=== PATIENT | female | born 1990 ===

== ENCOUNTER 2020-08-02 12:57 | Emergency (ER) | payer MEDICAID ==
[~2020-08-02] VITALS: Ht 180.3 cm; Wt 119.8 kg
[2020-08-02] MEDS ORDERED: AZITHROMYCIN 250 MG TABLET. PO ONE (13:45)
[2020-08-02] MEDS ORDERED: cefTRIAXone IM 250 MG VIAL IM ONE (13:45)
[2020-08-02 13:59] LABS: BILIRUBIN,URINE NEGATIVE (NEG); CLARITY,URINE CLEAR; COLOR,URINE YELLOW; NITRITE,URINE NEGATIVE (NEG); PH,URINE 5.5 (<5.0-8.0); PROTEIN,URINE NEGATIVE (NEG-TRACE); UROBILINOGEN,URINE 0.2 mg/dL (0.2 mg/dL)
[2020-08-02 14:15] LABS: BACTERIA,URINE FEW /HPF (0-FEW); RBC,URINE 0 /HPF (0-2); WBC,URINE 0 /HPF (0-4)
[2020-08-02 14:45] VITALS: BP 147/82
[2020-08-02] MEDS ORDERED: POLY10DR LEFTEYE (14:56)
--- NOTE | 2020-08-02 14:56 | ED.ADGEN ---
Past Medical History Past Medical History: No Pertinent History Past Surgical History: No Surgical History Smoking Status: Current Every Day Smoker Alcohol Use: Occasionally General Adult EDM: Chief Complaint: VAGINAL PROBLEM HPI: HPI: Patient is a 30 year old female who presents to the ER with complaints of irregular vaginal discharge for the last week and left eye redness, swelling, and crusting for the last 2 days. Pt states that the eye sx started after she used a friend's mascara. She denies any vision changes. eye pain, or itching. She states she has had some crusting of her eyelashes. She denies any pelvic pain, abdominal pain, fever, cough, sore throat, nausea, vomiting, diarrhea, dysuria, hematuria, or increased urinary frequency. Patient reports a history of BV and is concerned that she has BV again. She currently denies any pain. Review of Systems: Review of Systems: Complete ROS is negative unless otherwise noted in HPI. Current Medications: Current Medications Medications (Trade) Dose Ordered Sig/Gabriella Start Time Stop Time Status Last Admin Dose Admin Azithromycin (Zithromax) 1,000 mg 1X ONCE 08/02/20 13:45 08/02/20 13:58 DC 08/02/20 14:07 1,000 MG Ceftriaxone Sodium (Rocephin Im) 250 mg 1X ONCE 08/02/20 13:45 08/02/20 13:58 DC 08/02/20 14:07 250 MG Allergies: Allergies: Allergies Coded Allergies Type Severity Reaction Last Updated Verified No Known Drug Allergies 08/02/20 No Physical Exam: PE: See Above Constitutional: Well developed, well nourished, no acute distress, non-toxic appearance, obese HENT: Normocephalic, atraumatic, bilateral external ears normal, nose normal. Eyes: PERRLA, EOMI, right eye conjunctiva normal, no discharge; left eye conjunctive a injected with mild swelling of upper and lower eyelids, no purulent drainage, consistent with conjunctivitis. Neck: Normal range of motion, no stridor. Cardiovascular: Heart rate regular rhythm Lungs & Thorax: Respirations even and unlabored, no retractions, no respiratory distress Pelvic Exam: Erp Analyst present Jen HOLLY Abdomen: Nontender, soft, obese External Genitalia: Normal Skin Speculum: Normal vaginal mucosa, thick white vaginal discharge, normal cervical discharge Skin: Warm, dry, no erythema, no rash. Extremities: No cyanosis, ROM intact, no edema. Neurologic: Alert and oriented X 3, no focal deficits noted. Psychologic: Affect normal, judgement normal, mood normal. Current Patient Data: Labs: Laboratory Tests Test 08/02/20 13:20 08/02/20 13:40 Urine Collection Type Void Urine Color Yellow Urine Clarity Clear Urine pH 5.5 (<5.0-8.0) Urine Specific [place] 1.020 (1.000-1.030) Urine Protein Negative mg/dL (NEG-TRACE) Urine Glucose (UA) Negative mg/dL (NEG) Urine Ketones (Stick) Negative mg/dL (NEG) Urine Blood Negative (NEG) Urine Nitrite Negative (NEG) Urine Bilirubin Negative (NEG) Urine Urobilinogen Dipstick 0.2 mg/dL (0.2 mg/dL) Urine Leukocyte Esterase Negative (NEG) Urine RBC 0 /HPF (0-2) Urine WBC 0 /HPF (0-4) Urine Squamous Epithelial Cells Mod /LPF Urine Bacteria Few /HPF (0-FEW) Urine Mucus Marked /LPF POC Urine HCG, Qualitative Hcg negative (Negative) Microbiology 08/02/20 Wet Prep - Final, Complete Vital Signs: Vital Signs Date Time Temp Pulse Resp B/P (MAP) Pulse Ox O2 Delivery O2 Flow Rate FiO2 08/02/20 14:45 82 15 147/82 (103) 99 Room Air 08/02/20 13:40 98.5 98.5 EKG: EKG: [] Heart Score: Risk Factors: Risk Factors: DM, Current or recent (<one month) smoker, HTN, HLP, family history of CAD, obesity. Risk Scores: Score 0 - 3: 2.5% MACE over next 6 weeks - Discharge Home Score 4 - 6: 20.3% MACE over next 6 weeks - Admit for Clinical Observation Score 7 - 10: 72.7% MACE over next 6 weeks - Early Invasive Strategies Radiology/Procedures: Radiology/Procedures: [] Course & Med Decision Making: Course & Med Decision Making Pertinent Labs and Imaging studies reviewed. (See chart for details) Patient was treated prophylactically with 250 mg of IM Rocephin, and 1 g of PO Zithromax. Patient was instructed to avoid having intercourse until the results of gonorrhea and chlamydia testing are available, patient was notified that th giovani results would not be available for 48 hours. If one or both of these tests is positive, patient needs to refrain from intercourse for approximately 1 week following the treatment of any current partners. []I have reviewed the PA/STREET INSPECTOR's note and Plan of Care. I was available for consultation as needed during the patient's visit in the emergency department. I agree with the clinical impression, plans and disposition. Dragon Disclaimer: Dragon Disclaimer: This electronic medical record was generated, in whole or in part, using a voice recognition dictation system. Departure Departure Impression: Primary Impression: Contact with and (suspected) exposure to infections with a predominantly sexual mode of transmission Additional Impressions: White vaginal discharge Conjunctivitis Disposition: DC HOME SELF CARE/HOMELESS Condition: STABLE Referrals: NO PCP (PCP) Patient Instructions: Allergic Conjunctivitis, [id number], Sexually Transmitted Disease, [id number] Additional Instructions: Fill the prescription(s) and use as directed. Apply warm, moist washcloths to eyes needed for comfort. Recommend use of baby shampoo to wash eyelids. Recommend that you go to your local health department for comprehensive sexually transmitted disease testing. You have been treated for a suspected gonorrhea and chlamydia. Avoid having intercourse until the results of gonorrhea and chlamydia testing are available, these results will not be available for 48 hours. If one or both of these tests is positive, you need to refrain from intercourse for approximately 1 week following the treatment of any current partners. Follow-up with your primary care doctor in 1-2 days. Return to the emergency room if your symptoms worsen. Scripts Polymyxin B Sulf/Trimethoprim (POLYTRIM EYE DROPS) 10 Ml Drops 2 DROP LEFTEYE Q6HRS for 7 Days, #10 ML 0 Refills Prov: DAVID MARROQUIN APRN 08/02/20 Problem Qualifiers Additional Impressions: Conjunctivitis Conjunctivitis type: acute Acute conjunctivitis type: unspecified Laterality: left Qualified Codes: H10.32 - Unspecified acute conjunctivitis, left eye DAVID MARROQUIN APRN Aug 02, 2020 14:56 GUILLERMINA BRONSON MD Aug 02, 2020 15:37
[2020-08-03 20:09] LABS: GC PROBE Negative (Negative)
== END 2020-08-02 15:14 | disposition home or self-care (01) ==
LOC: ER 12:57
DX: N89.8 Other specified noninflammatory disorders of vagina (principal); H10.32 Unspecified acute conjunctivitis, left eye; R60.0 Localized edema; F17.200 Nicotine dependence, unspecified, uncomplicated
CPT/HCPCS: 81001; 81025; 87491; 87591; 96372; 99284; J0696; Q0111